=== PATIENT | female | born 1985 | race Caucasian/White ===

== ENCOUNTER 2021-09-28 12:22 | Inpatient (IN) ==
[2021-09-28] MEDS ORDERED: LORazepam 2 mg VIAL 1 ml ONE (12:45)
[2021-09-28] MEDS ORDERED: diPHENhydraMINE IV 50 MG/ML 1 ml VIAL (BENADRYL) ONE (12:48)
[2021-09-28] MEDS ORDERED: Haloperidol 5 mg/ml SDV IV/IM 5 MG/ML AMP ONE (12:48)
[2021-09-28] MEDS ORDERED: Ziprasidone IM 20 mg VIAL 1 ml VIAL IM ONE (13:17)
[2021-09-28] MEDS ORDERED: NS 0.9% 1000 ml BAG 1,000 ML IV ONE (14:38)
[2021-09-29] MEDS: Vitamin THERAPEUTIC TAB PO SCH (07:52)
[2021-09-29] MEDS ORDERED: Albuterol HFA INHALER 8 gm MDI INH PRN (12:24)
[2021-09-30 08:23] LABS: HDL Cholesterol 36.8 mg/dL
[2021-09-30] MEDS: Vitamin THERAPEUTIC TAB PO SCH (09:53)
[2021-10-01] MEDS: Vitamin THERAPEUTIC TAB PO SCH (08:55)
[2021-10-01] MEDS: chlorproMAZINE TAB 50 MG Q6H PRN AGITATION PO (17:34)
[2021-10-01] MEDS ORDERED: Nicotine GUM 4MG FRUIT FLAVOR PO ONE (19:20)
[2021-10-02] MEDS: Vitamin THERAPEUTIC TAB PO SCH (08:19)
[2021-10-02] MEDS: Nicotine PATCH 21 MG/24 HR PATCH TRANSDERM SCH (08:21)
[2021-10-02] MEDS: Nicotine GUM 4MG FRUIT FLAVOR PO PRN ×4 (08:24→17:45)
[2021-10-02] MEDS: chlorproMAZINE TAB 50 MG Q6H PRN AGITATION PO ×2 (10:07→17:45)
[2021-10-03] MEDS: Nicotine PATCH 21 MG/24 HR PATCH TRANSDERM SCH (07:32)
[2021-10-03] MEDS: Vitamin THERAPEUTIC TAB PO SCH (07:32)
[2021-10-03] MEDS: Nicotine GUM 4MG FRUIT FLAVOR PO PRN ×3 (09:40→19:50)
[2021-10-03] MEDS: chlorproMAZINE TAB 50 MG Q6H PRN AGITATION PO ×2 (12:48→20:43)
[2021-10-04] MEDS: Al Hydrox/Mg Hydrox/Simet LIQ 30 ML UDC PO PRN ×3 (00:16→20:22)
[2021-10-04] MEDS: Vitamin THERAPEUTIC TAB PO SCH (08:44)
[2021-10-04] MEDS: chlorproMAZINE TAB 50 MG Q6H PRN AGITATION PO (12:20)
[2021-10-04] MEDS: Nicotine GUM 4MG FRUIT FLAVOR PO PRN ×2 (12:23→14:27)
[2021-10-04] MEDS: Nicotine PATCH 21 MG/24 HR PATCH TRANSDERM SCH (12:24)
[2021-10-04] MEDS ORDERED: Paliperidone SUSTENNA 234 MG/1.5 ML IM ONE (20:04)
[2021-10-05 07:32] VITALS: BP 107/55
[2021-10-05] MEDS: Nicotine PATCH 21 MG/24 HR PATCH TRANSDERM SCH (09:53)
[2021-10-05] MEDS: Vitamin THERAPEUTIC TAB PO SCH (09:53)
== END 2021-10-05 12:15 | disposition home or self-care (01) | DRG 885 ==
LOC: ED 12:22 → BSU 09-29 02:50
PROVIDERS: ADMIT Psychiatry & Neurology Psychiatry; ATTEND Psychiatry & Neurology Psychiatry